=== PATIENT | female | born 2005 | race Caucasian/White ===

== ENCOUNTER 2024-03-12 17:53 | Emergency (ER) | payer SELFPAY ==
[2024-03-12 17:58] VITALS: BP 108/64; PULSE 90; RESP 16; TEMP 36.4; O2SAT 99
--- NOTE | 2024-03-12 20:31 | PC.NURSE ---
Patient called back to be taken to a room; no answer.
--- NOTE | 2024-03-12 20:48 | PC.NURSE ---
Patient again called out; no answer
== END 2024-03-12 21:08 | disposition left against medical advice (07) ==
LOC: ANHED 21:05
DX: O20.9 Hemorrhage in early pregnancy, unspecified (principal); Z3A.08 8 weeks gestation of pregnancy
CPT/HCPCS: 99199